=== PATIENT | male | born 1945 | race Caucasian/White ===

== ENCOUNTER 2022-02-25 06:51 | Day surgery (SDC) | payer MEDICARE, BC ==
[2022-02-21 11:55] LABS: BASOPHILS # (AUTO) 0.1 X10'3 (0-0.2); EOSINOPHILS # (AUTO) 0.1 X10'3 (0-0.9); EOSINOPHILS % (AUTO) 0.7 % (0-6); LYMPHOCYTES # (AUTO) 1.3 X10'3 (1.1-4.8); LYMPHOCYTES % (AUTO) 15.1 % (21-51); MEAN CORPUSCULAR HEMOGLOBIN 33.1 PG (27.0-31.0); MEAN CORPUSCULAR HGB CONC 33.4 g/dL (33.0-36.5); MEAN CORPUSCULAR VOLUME 98.9 FL (78-98); MEAN PLATELET VOLUME 8.1 FL (7.4-10.4); MONOCYTES # (AUTO) 0.6 X10'3 (0-0.9); MONOCYTES % (AUTO) 7.4 % (2-12); NEUTROPHILS # (AUTO) 6.6 X10'3 (1.8-7.7); NEUTROPHILS % (AUTO) 75.8 % (42-75); PRE OP HEMATOCRIT 45.6 % (42.0-52.0); PRE OP HEMOGLOBIN 15.2 g/dL (14.0-17.9); PRE OP PLATELET COUNT 259 X10'3 (140-440); RED BLOOD COUNT 4.61 X10'6 (4.70-6.10); RED CELL DISTRIBUTION WIDTH 13.6 % (11.5-14.5)
[2022-02-21 12:09] LABS: ALBUMIN 4.1 G/DL (3.4-5.0); ALBUMIN/GLOBULIN RATIO 1.3 (1.1-1.5); ALKALINE PHOSPHATASE 77 IU/L (46-116); BLOOD UREA NITROGEN 20 MG/DL (7-18); BUN/CREATININE RATIO 21.3 (5.4-32.0); CALCIUM 9.2 MG/DL (8.5-10.1); CHLORIDE 105 MMOL/L (99-107); CREATININE 0.94 MG/DL (0.60-1.10); PRE OP ALT 18 U/L (30-65); PRE OP ANION GAP 8 (8-16); PRE OP AST 26 U/L (10-37); PRE OP BILIRUB, TOTAL 1.5 MG/DL (0.0-1.0); PRE OP GLUCOSE 100 MG/DL (70-104); PRE OP POTASSIUM 4.2 MMOL/L (3.4-5.1); PRE OP SODIUM 139 MMOL/L (135-145); TOTAL CARBON DIOXIDE 26.5 MMOL/L (24-32); TOTAL PROTEIN 7.3 G/DL (6.4-8.2); eGFR 78 ML/MIN
[2022-02-25] VITALS (8 sets, daily range): BP systolic 101–142; BP diastolic 54–85
[~2022-02-25] VITALS: Ht 182.9 cm; Wt 100.0 kg
[~2022-02-25 06:51] MED LIST: ALBU0.63 NEB; APIX5TAB3 PO; BUPIVAcaine/PF 2.5 mg/ml (0.25%) 30ml vial ONE; FLO0.4C PO; FLUT1BLS4; clindamycin 600mg/D5W 50ml 50 ML IV ONE; famotidine 20mg tablet PO ONE; ringers solution, lacted 500 ML IV SCH
[2022-02-25] MEDS ORDERED: fentaNYL/PF 50MCG/1 ML 2ML syringe ONE (09:24)
[2022-02-25] MEDS ORDERED: midazolam 1 mg/ML 2ml injection ONE (09:24)
--- NOTE | 2022-02-25 10:02 | NUR ---
Received from OR via , accompanied by Anesthesiologist ARVIN and OR NURSE report given by Anesthesiolgist. PT IS A/O X4. NO 02 NEEDS. DENIES PAIN OR DISCOMFORT. IN AFIB; THIS IS HIS HX. Addendum: 02/25/22 at 1019 by Cailin Alcantara RN Amended: Links added.
--- NOTE | 2022-02-25 11:02 | NUR ---
PATIENT A&OX4, DENIES PAIN, V/S WNL, SCD OFF, 20G TO RLA D/C, LEFT WRIST DRESSING CDI ICE AND ELEVATED LUE. I HAVE REVIEWED D/C INSTRUCTIONS WITH PATIENT and they have verbalized understanding patient d/c home with all belongings and family FRIEND gave transport home. 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 EDUCATED PT TO ALTERNATE BETWEEN IBUPROFEN AND ACETAMINOPHEN. PT EXPRESSES UNDERSTANDING. Addendum: 02/25/22 at 1114 by Cailin Alcantara RN Amended: Links added.
== END 2022-02-25 11:02 | disposition home or self-care (01) ==
LOC: PAS 06:51 → EDBD 10:30 → PAS 11:02
PROVIDERS: ATTEND Orthopaedic Surgery Hand Surgery
DX: G56.02 Carpal tunnel syndrome, left upper limb (principal); M65.322 Trigger finger, left index finger; J44.9 Chronic obstructive pulmonary disease, unspecified; Z79.899 Other long term (current) drug therapy; Z98.890 Other specified postprocedural states; Z88.0 Allergy status to penicillin; Z87.891 Personal history of nicotine dependence
CPT/HCPCS: 26055; 36415; 64721; 80053; 82948; 85025; 93005; A6222; J2250; J3010; J3490; J7030; J7120; Z7506; Z7512; A4215